=== PATIENT | male | born 1980 | race Two or more races ===

== ENCOUNTER 2016-11-30 23:19 | Observation (INO) | payer MEDICAID ==
[~2016-11-30] VITALS: Ht 180.3 cm; Wt 81.6 kg
[2016-12-01] MEDS ORDERED: SODIUM CHLORIDE 0.9% 1,000 ML IV ONE
[2016-12-01 00:23] LABS: Basophils # (auto) 0.2 uL; Basophils % (auto) 1.8 % (0.0-2.0); Eosinophils # (auto) 0 uL; Eosinophils % (auto) 0.1 % (0.0-7.0); Hematocrit 49.2 % (41.0-53.0); Hemoglobin 16.8 g/dL (13.5-17.5); Lymphocytes # (auto) 2.7 uL; Lymphocytes % (auto) 27.7 % (10.0-50.0); Mean Corpuscular Hemoglobin 30.1 pg (28.0-32.0); Mean Corpuscular Hgb Conc. 34.1 g/dL (32.0-36.0); Mean Corpuscular Volume 88.5 fL (80.0-100.0); Mean Platelet Volume 7.2 fL (7.4-10.4); Monocytes # (auto) 0.6 uL; Neutrophils # (auto) 6.3 uL; Neutrophils % (auto) 64.4 % (37.0-80.0); Platelet Count (auto) 356 10^3/uL (140-450); Red Cell Distribution Width 12.9 % (11.6-16.0); White Blood Cell 9.8 10^3/uL (4.4-10.8)
[2016-12-01 00:27] LABS: Urine Bilirubin Negative (Negative); Urine Color Yellow (Yellow); Urine Hyaline Cast FEW /lpf (0 - 2); Urine Nitrite Negative (Negative); Urine RBC 3 /hpf (0 - 3); Urine Urobilinogen Normal (Negative); Urine pH 6.5 (5.0-8.0)
[2016-12-01 00:28] LABS: Urine Blood 1+ /uL (Negative); Urine Glucose 4+ mg/dL (Normal); Urine Ketone 3+ (Negative)
[2016-12-01 00:37] LABS: Albumin 4.3 g/dL (3.4-5.0); BUN/Creatinine Ratio 8.3; Calcium 9.2 mg/dL (8.5-10.1); Potassium 3.5 mmol/L (3.5-5.1)
[2016-12-01 00:39] LABS: Salicylate < 1.7 mg/dL (2.8-20.0)
[2016-12-01 00:40] LABS: Acetaminophen < 2.0 ug/mL (10-30); Bilirubin, Total 0.9 mg/dL (0.2-1.0); Total Protein 8.9 g/dL (6.4-8.2)
[2016-12-01] MEDS ORDERED: ONDANSETRON HCL 4 MG/2 ML VIAL ONE (02:11)
[2016-12-01] MEDS ORDERED: ONDANSETRON HCL 4 MG/2 ML VIAL IV ONE (02:15)
[2016-12-01] MEDS ORDERED: LORazepam 2MG/ML-1ML VIAL ONE (02:20)
[2016-12-01] MEDS ORDERED: LORazepam 2MG/ML-1ML VIAL IV ONE ×2 (02:30→07:45)
[2016-12-01] MEDS ORDERED: LABETALOL HCL 5 MG/ML 4ML SYRINGE IV ONE (08:30)
[2016-12-01 11:50] VITALS: BP 169/75
== END 2016-12-01 12:02 | disposition home or self-care (01) | DRG 756 ==
LOC: EDBD 23:19 → ER 23:26 → UNDOADMOB 23:27 → OVERFLOW 23:27 → UNDODISOB 12-01 12:02 → ER 12-01 12:02
PROVIDERS: ADMIT Emergency Medicine; ATTEND Emergency Medicine
DX: R45.851 Suicidal ideations (principal); F10.121 Alcohol abuse with intoxication delirium; I10 Essential (primary) hypertension; F41.9 Anxiety disorder, unspecified; F32.9 Major depressive disorder, single episode, unspecified; F31.9 Bipolar disorder, unspecified; E10.9 Type 1 diabetes mellitus without complications; F10.129 Alcohol abuse with intoxication, unspecified
CPT/HCPCS: 36415; 80053; 80320; 80329; 81001; 85025; 96361; 96374; 96375; 96376; G0378; G0434; J2405; J3490